=== PATIENT | male | born 1960 | race Caucasian/White ===

== ENCOUNTER → 2021-05-15 | Outpatient (CLI) | payer OTHER ==
[~2021-05-15] MED LIST: BUSPIRONE HCL15 MG PO; COZAAR50 MG PO; CYMBALTA 30 MG30 MG PO; ECOTRIN325 MG PO; FLOMAX0.4 MG PO; GLUCOTROL 10 MG10 MG PO; HYDROCHLOROTHIA25 MG PO; JANUMET 50-1,01 EACH PO; LIPITOR40 MG PO; LOPRESSOR50 MG PO; ZOCOR40 MG PO; ZOLOFT100 MG PO
== END ==
LOC: NM 13:00
DX: R94.31 Abnormal electrocardiogram [ECG] [EKG] (principal)
CPT/HCPCS: 78452; 93017; A9502; J2785